=== PATIENT | male | born 1990 | race Caucasian/White ===

== ENCOUNTER 2018-01-02 08:22 | Day surgery (SDC) | payer BC, MEDICARE, OTHER ==
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
[~2018-01-02 08:22] MED LIST: Buffered Lidocaine 0.9% SYRIN* 5 ML/SYR SYRINGE INTRADERM ONE; Famotidine IV* 10 MG/ML 2 ML (20 mg) IV ONE; Lidocaine 1% INJ* 10 MG/ML 30 ML SDV ONE
[2018-01-02] MEDS ORDERED: Famotidine IV* 10 MG/ML 2 ML (20 mg) ONE (08:25)
[2018-01-02] MEDS ORDERED: ceFAZolin 2 GM PREMIX (*) 2 GM/50 ML BAG IVPB ONE (08:30)
[2018-01-02] MEDS ORDERED: fentaNYL* 50 MCG/ML 2 ML VIAL (100 MCG VIAL) ONE (09:17)
[2018-01-02] MEDS ORDERED: Midazolam* 1 MG/ML 5 ML VIAL (5 MG) ONE (09:17)
[2018-01-02] MEDS ORDERED: Propofol* 10 MG/ML 20 ML BTL IV PUSH ONE (09:29)
[2018-01-02] MEDS ORDERED: Ketorolac INJ* 30 MG/ML 1 ML VIAL ONE (09:29)
[2018-01-02] MEDS ORDERED: Lidocaine 2% PF * 5 ML VIAL ONE (09:29)
[2018-01-02] MEDS ORDERED: Ondansetron INJ* 2 MG/ML VIAL ONE (10:10)
[2018-01-02] MEDS ORDERED: DiMENhydriNATE IV* 50 MG/ML VIAL IV PUSH PRN (10:55)
[2018-01-02] MEDS ORDERED: Acetaminophen TAB* 325 MG PO PRN (10:55)
[2018-01-02] MEDS ORDERED: Naloxone* 0.4 MG/ML 1 ML VIAL IV PRN (10:55)
[2018-01-02 11:08] VITALS: BP 102/59
--- NOTE | 2018-01-02 22:01 | OP ---
DATE OF OPERATION: 01/02/18 [facility] DATE OF : 88 SURGEON: Viviana Mckenzie MD ACCOUNT DEVELOPMENT EXECUTIVE: YULI Ji ANESTHESIA: Local MAC. PRE-OP DIAGNOSIS: Left ring finger extensor tendon laceration. POST-OP DIAGNOSIS: Left ring finger extensor tendon laceration. OPERATIVE PROCEDURE: Left ring finger extensor tendon repair. ESTIMATED BLOOD LOSS: Zero. TOURNIQUET TIME: 15 minute. INDICATIONS FOR PROCEDURE: Leroy is a 27-year-old male who was at work on 12/02. He tripped and fell with a mixer in his hand and he cut the dorsal aspect of his left ring finger MP joint. Since then, he has been unable to extend the finger. He presents now for extensor tendon repair of the left ring finger. DESCRIPTION OF PROCEDURE: The patient was brought to the operating room, was given a sedation anesthetic and local infiltration of 10 cc of 1% plain lidocaine on the dorsal aspect of his left hand overlying the ring finger MP joint. Skin of his left hand and forearm was prepped and draped in usual sterile fashion. The hand and forearm were exsanguinated and tourniquet elevated to 250 mmHg. The healed laceration was incised and then extended proximally and distally. There was complete laceration of the ring finger extensor tendon and some fairly abundant scar tissue. Scar tissue was debrided on the ends of the tendon and overlying the tendon, so that there was clean and fresh tendon edges. A grasping suture with 4-0 Prolene was then used to reapproximate the tendon and this was reinforced with some [id number] suture of 4-0 Prolene. With range of motion of the finger, there was no gaping at the tendon site. The wound was irrigated and skin edges were reapproximated with 4-0 nylon suture. The wound was dressed with Xeroform, 4x4, Webril and volar splint. The patient tolerated the procedure well, was brought to recovery room in good conditions. [id number]/[facility] #: [id number] [facility]
== END 2018-01-02 11:14 | disposition home or self-care (01) ==
LOC: OREAST 08:22
PROVIDERS: ATTEND Orthopaedic Surgery
DX: S66.325A Laceration of extensor muscle, fascia and tendon of left ring finger at wrist and hand level, initial encounter (principal); W01.110A Fall on same level from slipping, tripping and stumbling with subsequent striking against sharp glass, initial encounter; Y92.511 Restaurant or cafe as the place of occurrence of the external cause; Y99.0 Civilian activity done for income or pay
CPT/HCPCS: J0690; J1885; J2250; J2405; J2704; J3010